=== PATIENT | male | born 1945 | race Caucasian/White ===

== ENCOUNTER 2018-04-02 10:58 | Day surgery (SDC) | payer OTHER, SELFPAY ==
[2018-04-01 09:58] VITALS: BMI 30.2
[2018-04-02 12:06] LABS: INR 0.9; PROTHROMBIN TIME 10.4 Seconds (9.8-13.1)
[2018-04-02 12:08] LABS: PARTIAL THROMBOPLASTIN TIME 33.6 Seconds (25.6-37.1)
[2018-04-02] MEDS ORDERED: Propofol 10 mg/ml Inj (20 ML) ONE (13:36)
[2018-04-02] MEDS ORDERED: Midazolam 2 MG/2 ML VIAL ONE (13:37)
[2018-04-02] MEDS ORDERED: Lactated Ringer's 500 ML IV ONE ×2 (13:40→14:20)
[2018-04-02] MEDS ORDERED: Lidocaine 1% PF (5ml) Amp INJ ONE (13:55)
[2018-04-02] MEDS ORDERED: Lactated Ringer's 500 ML IV SCH (14:45)
--- NOTE | 2018-04-02 15:57 | PCM.SURG1 ---
Surgeon's Initial Post Op Note - Surgeon's Notes Surgeon: Chaka Fabric Worker Leader: PGY4 Type of Anesthesia: IV Sedation, Local Pre-Operative Diagnosis: Left hand 3rd digit mass Operative Findings: Hard mass, 1.5cm Post-Operative Diagnosis: Left hand 3rd digit mass Operation Performed: Excision of Left hand 3rd digit mass Specimen/Specimens Removed: Left hand 3rd digit mass in 2 parts Estimated Blood Loss: EBL {In ML}: 5 Blood Products Given: N/A Drains Used: No Drains Date of Surgery/Procedure: 04/02/18 Time of Surgery/Procedure: 13:40
[2018-04-02 16:30] VITALS: O2SAT 97
[2018-04-02 16:47] VITALS: RESP 18
[2018-04-02 17:57] VITALS: BP 136/78; PULSE 48; TEMP 98
--- NOTE | 2018-04-03 04:27 | OP ---
Copied to: Giuseppe Aly DO Attending MD: Kristin Null MD PROCEDURE DATE: 04/02/2018 PREOPERATIVE DIAGNOSIS: Left hand third digit finger mass. POSTOPERATIVE DIAGNOSIS: Left hand third digit finger mass. FINDINGS: Hard 1.5 cm mass. SPECIMEN: Left hand third digit finger mass. COMPLICATIONS: None. ESTIMATED BLOOD LOSS: 5 mL. SURGEON: Kristin Null MD. MARKETING CONTENT COORDINATOR: Giuseppe Aly, PGY-4. ANESTHESIOLOGIST: Ambrocio Headley MD. ANESTHESIA: IV sedation with local anesthetic. INDICATION FOR THE OPERATION: The patient is a 72-year-old male complaining of an enlarging left hand third digit finger mass that has been causing him some pain when touched for the last six months. Preoperatively, the risks, benefits and complications and postoperative course and alternatives of the surgery were discussed and informed consent was obtained for the procedure in the patient's [place] language. He now presents for surgical incision. DESCRIPTION OF OPERATION: The patient was brought to the operating room. The patient was placed in the supine position with the left arm extended out onto an arm table. The operating room time-out was performed.Left upper limb was prepped and draped in the routine sterile fashion and an injection of 5 mL of lidocaine was placed at the base of the third digit and the right lateral side of the digit. An incision was made over the mass, approximately 3cm. Skin was dissected away with #15 scalpel and retracted with skin forceps. The mass was noted to be firm, solid, possibly a tophus or similar lesion. The mass was then dissected out circumferentially using the scalpel and a small mosquito clamp. Once the mass was encircled, the base was excised and the mass was removed in two separate pieces. After the mass was removed, a portion of extra skin was removed and a 5-0 nylon suture was used to close the incision with 3 vertical mattress sutures. The incision was then cleaned with sterile water and dried off and a 4 x 4 dressing and a Kerlix wrap was placed on the digit. The patient tolerated the procedure well and was transported to PACU in stable condition. Giuseppe Aly DO Kristin Null MD [facility] # [id number] [place]
== END 2018-04-02 18:10 | disposition home or self-care (01) ==
LOC: H.OPSURG 10:58
PROVIDERS: ATTEND Specialist
DX: D48.1 Neoplasm of uncertain behavior of connective and other soft tissue (principal); Z21 Asymptomatic human immunodeficiency virus [HIV] infection status; I10 Essential (primary) hypertension; Z87.891 Personal history of nicotine dependence; M19.90 Unspecified osteoarthritis, unspecified site
CPT/HCPCS: 26115; 36415; 85610; 85730; 88304; J0690; J2001; J2250; J2704; J3010; J7120